=== PATIENT | female | born 1940 | race Caucasian/White ===

== ENCOUNTER 2017-08-12 07:29 | Outpatient (CLI) | payer MEDICARE ==
[2017-08-12 08:08] LABS: ALT (SGPT) 12 U/L (8-55); AST (SGOT) 13 U/L (5-34); Albumin 3.8 g/dL (3.4-4.8); Alkaline Phosphatase 50 U/L (40-150); Bilirubin, Total 0.9 mg/dL (0.2-1.2); Calc. Creatinine Clearance 0 mL/min (70-130); Cardiac Risk 3.9 (Less than 4.5); Chloride 107 mmol/L (98-107); Cholesterol 140 mg/dl (< 200 Desired); Estimated GFR-MDRD 68; Globulin 2.9 g/dL (2.4-3.5); Glucose 92 mg/dL (83-110); HDL Cholesterol 36 mg/dL (>60 Neg Risk); LDL Cholesterol, Calculated 83 mg/dL; Potassium 4.5 mmol/L (3.5-5.1); Protein, Total 6.7 g/dL (6.0-8.3); Sodium 143 mmol/L (136-145); Triglycerides 105 mg/dL (Less than 150)
[2017-08-12 08:23] LABS: Free T4 (Free Thyroxine) 0.96 ng/dL (0.70-1.48); Thyroid Stimulating Hormone 1.602 uIU/mL (0.35-4.94)
[2017-08-12 08:28] LABS: #Basophils 0.1 thou/uL (0.0-0.2); #Eosinphils 0.1 thou/uL (0.0-0.7); #Lymphocytes 2.4 thou/uL (1.20-3.40); #Monocytes 0.5 thou/uL (0.11-0.59); #Neutrophils 2.8 thou/uL (1.40-6.50); %Basophils 1.1 % (0.0-1.0); %Eosinophils 2.5 % (0.0-10.0); %Lymphocytes 41.1 % (21.0-51.0); %Monocytes 9.1 % (0.0-10.0); %Neutrophils 46.2 % (42.0-75.0); Hemoglobin 12.8 g/dL (12.0-16.0); Mean Corpuscular HGB CONC 33.1 g/dL (32.0-36.0); Mean Corpuscular Hemoglobin 31.5 pg (27.0-31.0); Mean Corpuscular Volume 95.4 fl (81.0-99.0); Platelet Count 181 thou/uL (130-400); Red Blood Cell (RBC) Count 4.07 mill/uL (4.20-5.40); White Blood Cell (WBC) Count 5.9 thou/uL (4.8-10.8)
[2017-08-12 10:28] LABS: BUN (Urea Nitrogen) 17 mg/dL (9.8-20.1); Carbon Dioxide 26 mmol/L (23-31)
== END 2017-08-12 07:30 | disposition home or self-care (01) ==
LOC: MADLABBHPM 07:29
PROVIDERS: ATTEND Family Medicine
DX: E78.5 Hyperlipidemia, unspecified (principal)
CPT/HCPCS: 36415; 80053; 80061; 84439; 84443; 85025